=== PATIENT | male | born 1985 | race Caucasian/White ===

== ENCOUNTER 2018-05-13 19:59 | Emergency (ER) | payer OTHER ==
[~2018-05-13 19:59] MED LIST: Bactrim Ds Tab1 EACH PO; CEPH500 PO; IBUP600 PO; Naprosyn500 MG PO; Norco 5-325 Ta1 EACH PO; OMEPRAZOLE MAGN20 MG PO; PENVK500 PO; Percocet 5-3251 EACH PO; SULTRIDS PO
[2018-05-14] MEDS ORDERED: Augmentin 875-1 EACH PO (13:03)
== END 2018-05-13 21:00 | disposition left against medical advice (07) ==
LOC: ER 19:59
DX: Z53.21 Procedure and treatment not carried out due to patient leaving prior to being seen by health care provider (principal)

== ENCOUNTER 2018-05-14 09:58 | Emergency (ER) | payer OTHER ==
[~2018-05-14] VITALS: Ht 188 cm; Wt 77.1 kg
[2018-05-14 10:40] LABS: Source, Urine Clean Catch
[2018-05-14 10:44] LABS: Bilirubin, Urine Neg (Neg); Blood, Urine 5+ (Neg); Glucose Qualitative, Urine 2+ (Neg); Ketones, Urine 2+ (Neg); Leukocyte Esterase, Urine 1+ (Neg); Nitrite, Urine Neg (Neg); Protein, Urine 3+ (Neg); Urobilinogen, Urine 2+ (Normal)
[2018-05-14 10:52] LABS: Appearance, Urine Hazy (Clear); Color, Urine Yellow (P-Yellow)
[2018-05-14 10:56] LABS: Red Blood Cells, Urine TNTC /hpf (0-2); White Blood Cells, Urine 0-2 /hpf (0-5)
[2018-05-14 10:57] LABS: Bacteria Few /hpf; Mucus Mod (0-Heavy); Squamous Epithelial Cells Not Seen /hpf (Few)
[2018-05-14 10:58] LABS: Yeast/Fungi Urine Rare /hpf
[2018-05-14 11:02] LABS: Influenza A Negative (NEGATIVE); Influenza B Negative (NEGATIVE)
[2018-05-14 11:23] LABS: BASOPHILS ABSOLUTE AUTO 0.03 K/mm3 (0.00-0.23); BASOPHILS PERCENT AUTO 0 % (0-2); EOSINOPHILS ABSOLUTE AUTO 0.01 K/mm3 (0.00-0.68); EOSINOPHILS PERCENT AUTO 0 % (0-6); Hematocrit 39.2 % (37.0-53.0); Hemoglobin 12.8 g/dL (13.5-17.5); IMMATURE GRAN ABSOLUTE AUTO 0.09 K/mm3 (0.00-0.10); IMMATURE GRAN PERCENT AUTO 1 % (0-1); LYMPHOCYTES ABSOLUTE AUTO 1.99 K/mm3 (0.84-5.20); LYMPHOCYTES PERCENT AUTO 11 % (21-46); MONOCYTES ABSOLUTE AUTO 1.68 K/mm3 (0.16-1.47); MONOCYTES PERCENT AUTO 9 % (4-13); Mean Corpuscular HGB 28.2 pg (26.0-34.0); Mean Corpuscular HGB Conc 32.7 g/dL (31.5-36.5); Mean Corpuscular Volume 86 fL (80-100); Mean Platelet Volume 8.7 fL (9.1-12.4); NEUTROPHILS ABSOLUTE AUTO 14.78 K/mm3 (1.96-9.15); NEUTROPHILS PERCENT AUTO 80 % (41-73); Platelet Count 228 K/mm3 (150-400); RDW Coefficient Variation 12.9 % (11.7-14.2); RDW Standard Deviation 40.5 fL (35.1-46.3); Red Blood Cell Count 4.54 M/mm3 (4.30-5.90); White Blood Cell Count 18.58 K/mm3 (4.00-11.30)
[2018-05-14 11:45] LABS: Alanine Aminotransfer (ALT/SGP 61 U/L (12-78); Albumin, Blood 3.3 g/dL (3.4-5.0); Albumin/Globulin Ratio 0.8 (0.8-1.8); Alk Phos 99 U/L (50-136); Anion Gap 7 mmol/L (6-16); Aspartate Aminotrans (AST/SGOT 24 U/L (12-37); Bilirubin, Total 0.7 mg/dL (0.1-1.0); Blood Urea Nitrogen 11 mg/dL (8-24); Bun/Creatinine Ratio 15.6 (12.0-20.0); CO2, Blood 29 mmol/L (21-32); Calcium, Blood 8.8 mg/dL (8.5-10.1); Chloride, Blood 103 mmol/L (98-108); Globulin, Blood 4.2 g/dL (2.2-4.0); Glomerular Filtration Rate >60 (60-); Glucose, Blood 124 mg/dL (70-99); Potassium, Blood 3.7 mmol/L (3.5-5.5); Sodium, Blood 139 mmol/L (136-145); Total Protein, Blood 7.5 g/dL (6.4-8.2)
[2018-05-14] MEDS ORDERED: Augmentin 875-1 EACH PO (13:03)
== END 2018-05-14 14:11 | disposition home or self-care (01) ==
LOC: ER 09:58
PROVIDERS: Emergency Medicine; Physician Assistant
DX: J18.1 Lobar pneumonia, unspecified organism (principal); Z88.6 Allergy status to analgesic agent; F17.210 Nicotine dependence, cigarettes, uncomplicated
CPT/HCPCS: 36415; 71046; 80053; 81001; 83605; 85025; 87086; 87804; 96365; 96367; 96375; 99283-25; J0456; J0696; J1885; J7030; J7050

== ENCOUNTER 2018-09-29 21:03 | Inpatient (IN) | payer OTHER ==
[~2018-09-29] VITALS: Ht 188 cm; Wt 84.0 kg
[~2018-09-29 21:03] MED LIST changes: +Augmentin 875-1 EACH PO
[2018-09-29 22:12] LABS: BASOPHILS ABSOLUTE AUTO 0.04 K/mm3 (0.00-0.23); BASOPHILS PERCENT AUTO 0 % (0-2); EOSINOPHILS ABSOLUTE AUTO 0.05 K/mm3 (0.00-0.68); EOSINOPHILS PERCENT AUTO 0 % (0-6); Hemoglobin 13.1 g/dL (13.5-17.5); IMMATURE GRAN ABSOLUTE AUTO 0.11 K/mm3 (0.00-0.10); IMMATURE GRAN PERCENT AUTO 1 % (0-1); LYMPHOCYTES ABSOLUTE AUTO 3.28 K/mm3 (0.84-5.20); LYMPHOCYTES PERCENT AUTO 17 % (21-46); MONOCYTES ABSOLUTE AUTO 1.69 K/mm3 (0.16-1.47); MONOCYTES PERCENT AUTO 9 % (4-13); Mean Corpuscular HGB 29.4 pg (26.0-34.0); Mean Corpuscular HGB Conc 33.6 g/dL (31.5-36.5); Mean Corpuscular Volume 87 fL (80-100); Mean Platelet Volume 8.8 fL (9.1-12.4); NEUTROPHILS ABSOLUTE AUTO 14.51 K/mm3 (1.96-9.15); NEUTROPHILS PERCENT AUTO 74 % (41-73); Platelet Count 280 K/mm3 (150-400); RDW Coefficient Variation 12.1 % (11.7-14.2); RDW Standard Deviation 39.2 fL (35.1-46.3); Red Blood Cell Count 4.46 M/mm3 (4.30-5.90); White Blood Cell Count 19.68 K/mm3 (4.00-11.30)
[2018-09-29 22:30] LABS: Alanine Aminotransfer (ALT/SGP 20 U/L (12-78); Albumin, Blood 3.5 g/dL (3.4-5.0); Albumin/Globulin Ratio 0.7 (0.8-1.8); Alk Phos 133 U/L (50-136); Anion Gap 5 mmol/L (6-16); Aspartate Aminotrans (AST/SGOT 12 U/L (12-37); Bilirubin, Total 0.5 mg/dL (0.1-1.0); Blood Urea Nitrogen 10 mg/dL (8-24); Bun/Creatinine Ratio 11.9 (12.0-20.0); CO2, Blood 30 mmol/L (21-32); Calcium, Blood 8.7 mg/dL (8.5-10.1); Chloride, Blood 99 mmol/L (98-108); Creatinine, Blood 0.84 mg/dL (0.60-1.20); Globulin, Blood 4.7 g/dL (2.2-4.0); Glomerular Filtration Rate >60 (60-); Glucose, Blood 95 mg/dL (70-99); Potassium, Blood 3.6 mmol/L (3.5-5.5); Sodium, Blood 134 mmol/L (136-145); Total Protein, Blood 8.2 g/dL (6.4-8.2)
[2018-09-29 22:48] LABS: Source, Urine Clean Catch
[2018-09-29 22:50] LABS: Appearance, Urine Clear (Clear); Blood, Urine 5+ (Neg); Color, Urine Amber (P-Yellow); Glucose Qualitative, Urine Neg (Neg); Ketones, Urine 1+ (Neg); Leukocyte Esterase, Urine 1+ (Neg); Nitrite, Urine Neg (Neg); Protein, Urine 4+ (Neg); Urobilinogen, Urine 2+ (Normal)
[2018-09-29 22:51] LABS: Bilirubin, Urine 1+ (Neg)
[2018-09-29 22:56] LABS: Bacteria Many /hpf; Red Blood Cells, Urine 50-100 /hpf (0-2); Squamous Epithelial Cells Not Seen /hpf (Few); Yeast/Fungi Urine Few /hpf
[2018-09-29 22:57] LABS: Hyaline Casts 0-2 /lpf (0-2); Mucus Light (0-Heavy)
--- NOTE | 2018-09-30 06:22 | NUR ---
RECEIVED HAND OFF FROM ER NURSE USING SBAR. TRANSPORTED TO ROOM VIA WHEELCHAIR. TRANSFERED SELF INTO BED WITH STANDBY ASSIST. AAO X3, JEONG, FOLLOWS ALL COMMANDS. ORIENTED TO ROOM, CALL SYSTEM, AND POC, VOICES UNDERSTANDING. RESPIRATIONS EVEN AND UNLABORED ON ROOM AIR. LUNG SOUNDS COARSE BILATERALLY. C/O CHEST AND FLANK PAIN 5/10 AT THIS TIME, WILL MEDICATE PER EMAR. ABDOMEN SOFT AND NONDISTENDED. BOWEL SOUNDS PRESENT IN ALL QUADS. CONTINENT OF BOWEL AND BLADDER, USES URINAL AT BEDSIDE. STATES LAST BM WAS 09/29/18 AND WAS NORMAL FOR HIM. 18G SL PIV NOT LEFT AC IS PATENT, FLUSHING WITH EASE. GOOD DISTAL PULSES NOTED TO ALL EXTREMITIES. SCATTERED ABRASIONS NOTED TO RIGHT HAND IN THE NUCKLE AREA, STATES THART HE LOST HIS TEMPER AND HIT A WALL. DENIES AGRESSION TOWARDS ANOTHER PERSON. ADMISSION ASSESSMENT IN PROGRESS. WILL CONTINUE TO MONITOR.
[2018-09-30 10:01] LABS: BASOPHILS ABSOLUTE AUTO 0.05 K/mm3 (0.00-0.23); BASOPHILS PERCENT AUTO 0 % (0-2); EOSINOPHILS ABSOLUTE AUTO 0.05 K/mm3 (0.00-0.68); EOSINOPHILS PERCENT AUTO 0 % (0-6); Hematocrit 33.7 % (37.0-53.0); Hemoglobin 11.2 g/dL (13.5-17.5); IMMATURE GRAN ABSOLUTE AUTO 0.16 K/mm3 (0.00-0.10); IMMATURE GRAN PERCENT AUTO 1 % (0-1); LYMPHOCYTES ABSOLUTE AUTO 2.61 K/mm3 (0.84-5.20); LYMPHOCYTES PERCENT AUTO 15 % (21-46); MONOCYTES ABSOLUTE AUTO 1.39 K/mm3 (0.16-1.47); MONOCYTES PERCENT AUTO 8 % (4-13); Mean Corpuscular HGB 29.4 pg (26.0-34.0); Mean Corpuscular HGB Conc 33.2 g/dL (31.5-36.5); Mean Corpuscular Volume 89 fL (80-100); Mean Platelet Volume 8.9 fL (9.1-12.4); NEUTROPHILS ABSOLUTE AUTO 12.96 K/mm3 (1.96-9.15); NEUTROPHILS PERCENT AUTO 75 % (41-73); Platelet Count 234 K/mm3 (150-400); RDW Coefficient Variation 12.3 % (11.7-14.2); RDW Standard Deviation 39.8 fL (35.1-46.3); Red Blood Cell Count 3.81 M/mm3 (4.30-5.90); White Blood Cell Count 17.22 K/mm3 (4.00-11.30)
[2018-09-30 16:04] LABS: U Amphetamine Screen DETECTED; U Barbituate Screen Not Detected; U Benzodiazapine Screen Not Detected; U Buprenorphine Screen Not Detected; U Cannabinoids Screen DETECTED; U Cocaine Screen Not Detected; U Methadone Screen Not Detected; U Methamphetamine Screen DETECTED; U Opiates Screen DETECTED; U Oxycodone Screen Not Detected; U Phencyclidine Screen Not Detected; U Propoxyphene Screen Not Detected
--- NOTE | 2018-09-30 17:58 | NUR ---
SUMMARY PT SLEPT MOST OF THE DAY, DENIES ANY SOB, SPUTUM SAMPLE COLLECTED AND SENT TO LAB, DENIED ANY DISCOMFORT TODAY, NO ACUTE CHANGES THIS SHIFT.
--- NOTE | 2018-09-30 22:45 | NUR ---
TEMP RECHECK SHOWS IMPROVEMENT OF TEMPROAL TEMP FROM 101.1 TO 100.0. STATES THAT HE FEELS BETTER THAN HE DID EARLIER. [facility]
--- NOTE | 2018-10-01 | NUR ---
TEMP RECHECK SHOWS NORMAL TEMPORAL TEMP OF 98.4
[2018-10-01 04:45] LABS: BASOPHILS ABSOLUTE AUTO 0.04 K/mm3 (0.00-0.23); BASOPHILS PERCENT AUTO 0 % (0-2); EOSINOPHILS ABSOLUTE AUTO 0.16 K/mm3 (0.00-0.68); EOSINOPHILS PERCENT AUTO 1 % (0-6); Hematocrit 32.4 % (37.0-53.0); Hemoglobin 10.6 g/dL (13.5-17.5); IMMATURE GRAN ABSOLUTE AUTO 0.09 K/mm3 (0.00-0.10); IMMATURE GRAN PERCENT AUTO 1 % (0-1); LYMPHOCYTES ABSOLUTE AUTO 3.31 K/mm3 (0.84-5.20); LYMPHOCYTES PERCENT AUTO 21 % (21-46); MONOCYTES ABSOLUTE AUTO 1.74 K/mm3 (0.16-1.47); MONOCYTES PERCENT AUTO 11 % (4-13); Mean Corpuscular HGB 28.3 pg (26.0-34.0); Mean Corpuscular HGB Conc 32.7 g/dL (31.5-36.5); Mean Corpuscular Volume 87 fL (80-100); Mean Platelet Volume 9.1 fL (9.1-12.4); NEUTROPHILS ABSOLUTE AUTO 10.79 K/mm3 (1.96-9.15); NEUTROPHILS PERCENT AUTO 67 % (41-73); Platelet Count 250 K/mm3 (150-400); RDW Coefficient Variation 12.6 % (11.7-14.2); RDW Standard Deviation 39.9 fL (35.1-46.3); Red Blood Cell Count 3.74 M/mm3 (4.30-5.90); White Blood Cell Count 16.13 K/mm3 (4.00-11.30)
[2018-10-01 05:17] LABS: Alanine Aminotransfer (ALT/SGP 17 U/L (12-78); Albumin, Blood 2.5 g/dL (3.4-5.0); Albumin/Globulin Ratio 0.6 (0.8-1.8); Alk Phos 106 U/L (50-136); Anion Gap 6 mmol/L (6-16); Aspartate Aminotrans (AST/SGOT 28 U/L (12-37); Bilirubin, Total 0.3 mg/dL (0.1-1.0); Blood Urea Nitrogen 11 mg/dL (8-24); Bun/Creatinine Ratio 13.9 (12.0-20.0); CO2, Blood 27 mmol/L (21-32); Calcium, Blood 8.2 mg/dL (8.5-10.1); Chloride, Blood 105 mmol/L (98-108); Creatinine, Blood 0.79 mg/dL (0.60-1.20); Globulin, Blood 4.3 g/dL (2.2-4.0); Glomerular Filtration Rate >60 (60-); Glucose, Blood 103 mg/dL (70-99); Sodium, Blood 138 mmol/L (136-145); Total Protein, Blood 6.8 g/dL (6.4-8.2)
--- NOTE | 2018-10-01 06:30 | NUR ---
SHIFT SUMMARY PT SLEPT MOST OF THE SHIFT, DENIES ANY SOB OR COUGH AT THIS TIME. ABX INFUSING VIS PIV. DENIES FURTHER NEEDS OR WANTS. SAFETY MEASURES IN PLACE. WILL CONTINUE TO MONITOR.
--- NOTE | 2018-10-01 14:46 | NUR ---
PT RECENTLY REQ TO GO HOME. SEE VS. NOTIFIED, REPORTS WILL PLACE D/C ORDERS.
[2018-10-01] MEDS ORDERED: ACET325 PO (15:04)
[2018-10-01] MEDS ORDERED: CEFD300 PO (15:04)
[2018-10-01] MEDS ORDERED: Zithromax500 MG PO (15:04)
--- NOTE | 2018-10-01 15:13 | NUR ---
DISCHARGE PATIENT DISCHARGED, UNDERSTANDING INSTRUCTIONS. NO ACUTE DISTRESS NOTED, NEW RX FAXED TO [facility] AT HIS REQUEST
== END 2018-10-01 15:13 | disposition home or self-care (01) | DRG 871 ==
LOC: ER 21:03 → SURS 09-30 06:01
PROVIDERS: Emergency Medicine; Internal Medicine; ADMIT Internal Medicine
DX: A41.9 Sepsis, unspecified organism (principal); J18.9 Pneumonia, unspecified organism; F17.200 Nicotine dependence, unspecified, uncomplicated; Z88.6 Allergy status to analgesic agent
CPT/HCPCS: 36415; 71046; 71260; 80048; 80053; 81001; 83605; 84145; 85025; 85379; 87040; 87070; 87086; 87205; 93005; 93010; 96361; 96365; 96367; 96372-59; 99285-25; A9270; J0456; J0696; J1650; J7030; J7050; Q9967

== ENCOUNTER 2019-04-26 19:15 | Emergency (ER) | payer OTHER ==
[~2019-04-26] VITALS: Ht 188 cm; Wt 81.7 kg
[~2019-04-26 19:15] MED LIST changes: +ACET325 PO; +CEFD300 PO; +Zithromax500 MG PO
[2019-04-26 19:55] LABS: BASOPHILS ABSOLUTE AUTO 0.02 K/mm3 (0.00-0.23); BASOPHILS PERCENT AUTO 0 % (0-2); EOSINOPHILS PERCENT AUTO 0 % (0-6); Hematocrit 43.2 % (37.0-53.0); Hemoglobin 14.2 g/dL (13.5-17.5); IMMATURE GRAN ABSOLUTE AUTO 0.17 K/mm3 (0.00-0.10); IMMATURE GRAN PERCENT AUTO 1 % (0-1); LYMPHOCYTES ABSOLUTE AUTO 2.87 K/mm3 (0.84-5.20); LYMPHOCYTES PERCENT AUTO 18 % (21-46); MONOCYTES ABSOLUTE AUTO 0.81 K/mm3 (0.16-1.47); MONOCYTES PERCENT AUTO 5 % (4-13); Mean Corpuscular HGB 28.6 pg (26.0-34.0); Mean Corpuscular HGB Conc 32.9 g/dL (31.5-36.5); Mean Corpuscular Volume 87 fL (80-100); Mean Platelet Volume 9.6 fL (9.1-12.4); NEUTROPHILS ABSOLUTE AUTO 11.69 K/mm3 (1.96-9.15); NEUTROPHILS PERCENT AUTO 75 % (41-73); Platelet Count 177 K/mm3 (150-400); RDW Coefficient Variation 12.9 % (11.7-14.2); RDW Standard Deviation 40.7 fL (35.1-46.3); Red Blood Cell Count 4.97 M/mm3 (4.30-5.90); White Blood Cell Count 15.56 K/mm3 (4.00-11.30)
[2019-04-26 20:02] LABS: Influenza A Negative (NEGATIVE); Influenza B Negative (NEGATIVE)
[2019-04-26 20:13] LABS: Alanine Aminotransfer (ALT/SGP 20 U/L (12-78); Albumin, Blood 3.4 g/dL (3.4-5.0); Albumin/Globulin Ratio 0.7 (0.8-1.8); Alk Phos 81 U/L (50-136); Anion Gap 2 mmol/L (6-16); Aspartate Aminotrans (AST/SGOT 27 U/L (12-37); Bilirubin, Total 0.6 mg/dL (0.1-1.0); Blood Urea Nitrogen 11 mg/dL (8-24); Bun/Creatinine Ratio 12.7 (12.0-20.0); CO2, Blood 32 mmol/L (21-32); Calcium, Blood 9.1 mg/dL (8.5-10.1); Chloride, Blood 97 mmol/L (98-108); Creatinine, Blood 0.87 mg/dL (0.60-1.20); Globulin, Blood 4.9 g/dL (2.2-4.0); Glomerular Filtration Rate >60 (60-); Glucose, Blood 115 mg/dL (70-99); Potassium, Blood 3.8 mmol/L (3.5-5.5); Sodium, Blood 131 mmol/L (136-145); Total Protein, Blood 8.3 g/dL (6.4-8.2)
== END 2019-04-26 23:16 | disposition left against medical advice (07) ==
LOC: ER 19:15
PROVIDERS: Emergency Medicine
DX: Z53.21 Procedure and treatment not carried out due to patient leaving prior to being seen by health care provider (principal)
CPT/HCPCS: 36415; 71046; 80053; 85025; 87804

== ENCOUNTER 2020-06-17 14:14 | Emergency (ER) | payer OTHER ==
[~2020-06-17] VITALS: Ht 188 cm; Wt 86.2 kg
[~2020-06-17 14:14] MED LIST changes: +VENL25 PO
[2020-06-17] MEDS ORDERED: Bactrim Ds Tab1 EACH PO (15:02)
== END 2020-06-17 16:31 | disposition home or self-care (01) ==
LOC: ER 14:14
DX: L02.31 Cutaneous abscess of buttock (principal); R59.0 Localized enlarged lymph nodes
CPT/HCPCS: 10060; 76857; 90471; 90714; 99283-25; A9270-GY

== ENCOUNTER 2020-09-29 19:24 | Emergency (ER) | payer OTHER ==
[~2020-09-29] VITALS: Ht 188 cm; Wt 81.7 kg
[2020-09-29] MEDS ORDERED: Vibramycin100 MG PO (21:37)
== END 2020-09-29 21:47 | disposition home or self-care (01) ==
LOC: ER 19:24
DX: L02.415 Cutaneous abscess of right lower limb (principal); L02.411 Cutaneous abscess of right axilla; L02.212 Cutaneous abscess of back [any part, except buttock and flank]; A54.9 Gonococcal infection, unspecified; A74.9 Chlamydial infection, unspecified
CPT/HCPCS: 10061; 96372-59; 99283-25; A9270; J0696

== ENCOUNTER 2020-11-15 16:04 | Emergency (ER) | payer OTHER ==
[~2020-11-15] VITALS: Ht 188 cm; Wt 81.7 kg
[~2020-11-15 16:04] MED LIST changes: +Vibramycin100 MG PO
== END 2020-11-15 16:50 | disposition home or self-care (01) ==
LOC: ER 16:04
DX: L73.9 Follicular disorder, unspecified (principal); F17.210 Nicotine dependence, cigarettes, uncomplicated
CPT/HCPCS: 99283

== ENCOUNTER 2021-04-29 21:36 | Emergency (ER) | payer OTHER ==
[~2021-04-29] VITALS: Ht 188 cm; Wt 81.7 kg
== END 2021-04-29 23:30 | disposition home or self-care (01) ==
LOC: ER 21:36
DX: L03.012 Cellulitis of left finger (principal); F17.210 Nicotine dependence, cigarettes, uncomplicated
CPT/HCPCS: 10060; 99282-25

== ENCOUNTER 2022-05-12 23:09 | Emergency (ER) | payer OTHER ==
[~2022-05-12] VITALS: Ht 188 cm; Wt 86.2 kg
[~2022-05-12 23:09] MED LIST changes: +Keflex500 MG PO
[2022-05-12] MEDS ORDERED: CEPH500 PO (23:31)
== END 2022-05-12 23:38 | disposition home or self-care (01) ==
LOC: ER 23:09
DX: L02.01 Cutaneous abscess of face (principal); F17.210 Nicotine dependence, cigarettes, uncomplicated
CPT/HCPCS: A9270

== ENCOUNTER 2022-10-01 04:39 | Inpatient (IN) | payer OTHER ==
[~2022-10-01] VITALS: Ht 188 cm; Wt 88.5 kg
[~2022-10-01 04:39] MED LIST changes: +OMEP20ER PO
[2022-10-01 05:27] LABS: BASOPHILS ABSOLUTE AUTO 0.05 K/mm3 (0.00-0.23); BASOPHILS PERCENT AUTO 0 % (0-2); EOSINOPHILS ABSOLUTE AUTO 0.38 K/mm3 (0.00-0.68); EOSINOPHILS PERCENT AUTO 3 % (0-6); Hematocrit 34.2 % (37.0-53.0); Hemoglobin 11.2 g/dL (13.5-17.5); IMMATURE GRAN ABSOLUTE AUTO 0.02 K/mm3 (0.00-0.10); IMMATURE GRAN PERCENT AUTO 0 % (0-1); LYMPHOCYTES ABSOLUTE AUTO 2.17 K/mm3 (0.84-5.20); LYMPHOCYTES PERCENT AUTO 19 % (21-46); MONOCYTES ABSOLUTE AUTO 0.69 K/mm3 (0.16-1.47); MONOCYTES PERCENT AUTO 6 % (4-13); Mean Corpuscular HGB Conc 32.7 g/dL (31.5-36.5); Mean Corpuscular Volume 86 fL (80-100); Mean Platelet Volume 8.7 fL (9.1-12.4); NEUTROPHILS ABSOLUTE AUTO 8.07 K/mm3 (1.96-9.15); NEUTROPHILS PERCENT AUTO 71 % (41-73); Platelet Count 328 K/mm3 (150-400); RDW Coefficient Variation 12.6 % (11.7-14.2); RDW Standard Deviation 39.4 fL (35.1-46.3); White Blood Cell Count 11.38 K/mm3 (4.00-11.30)
[2022-10-01 05:49] LABS: Albumin, Blood 3.4 g/dL (3.4-5.0); Albumin/Globulin Ratio 0.8 (0.8-1.8); Bilirubin, Total 0.3 mg/dL (0.1-1.0); Bun/Creatinine Ratio 14.1 (12.0-20.0); Creatinine, Blood 0.85 mg/dL (0.60-1.20); Globulin, Blood 4.4 g/dL (2.2-4.0); Potassium, Blood 3.6 mmol/L (3.5-5.5); Total Protein, Blood 7.8 g/dL (6.4-8.2)
[2022-10-01] MEDS ORDERED: OMEP20ER PO (06:07)
[2022-10-01 06:15] LABS: Source, Urine Clean Catch
[2022-10-01 06:21] LABS: Appearance, Urine Clear (Clear); Bilirubin, Urine Neg (Neg); Blood, Urine 5+ (Neg); Color, Urine Amber (P-Yellow); Glucose Qualitative, Urine Neg (Neg); Ketones, Urine 1+ (Neg); Leukocyte Esterase, Urine Neg (Neg); Nitrite, Urine Neg (Neg); Protein, Urine 2+ (Neg); Specific Gravity, Urine 1.025 (1.003-1.022); Urobilinogen, Urine 2+ (Normal)
[2022-10-01 06:34] VITALS: BP 131/71
[2022-10-01 06:36] LABS: Bacteria Rare /hpf; Mucus Mod (0-Heavy); Red Blood Cells, Urine 25-50 /hpf (0-2); Squamous Epithelial Cells Rare /hpf (Few); White Blood Cells, Urine 0-2 /hpf (0-5)
[2022-10-01 07:38] VITALS: BP 117/76
--- NOTE | 2022-10-01 18:13 | NUR ---
SEEN WHAT LOOKED TO RESEMBLE A GREEN METAL OBJECT IN PATIENTS BED THAT WAS FALLING OUT OF HIS POCKET INTO THE BED, MIGHT HAVE BEEN A VAPE. NOTIFIED RN SO HE COULD FOLLOW UP WITH THE PATIENT. RN EDUCATED PATIENT. ALSO WINTESSED PATIENT PUCHING BUTTONS ON IV PUMP.STATED IT WAS BEEPING, BUT IT WAS NOT BEEPING WHEN I ENTERED THE ROOM
--- NOTE | 2022-10-01 18:41 | NUR ---
PT IS A/OX4, PLEASANT AND COOPERATIVE. THE PT HAS BEEN BEDREST TODAY KEEPING HIS LLE ELEVATED. THE PT SO FAR HAS DENIED ANY PAIN. N/V OR SOB. THE PT HAS BEEN DROWSY T/O THE DAY AWAKENS EASILY. SO WAS AT THE BEDSIDE FOR MOST OF THE DAY, CALL LIGHT IN REACH, WILL CONTINUE TO MONITOR AND ASSESS FOR CHANGES
[2022-10-01 19:23] VITALS: BP 115/70
[2022-10-02 04:37] VITALS: BP 114/87
[2022-10-02 05:26] LABS: BASOPHILS ABSOLUTE AUTO 0.04 K/mm3 (0.00-0.23); BASOPHILS PERCENT AUTO 1 % (0-2); EOSINOPHILS ABSOLUTE AUTO 0.52 K/mm3 (0.00-0.68); EOSINOPHILS PERCENT AUTO 7 % (0-6); Hematocrit 34.6 % (37.0-53.0); Hemoglobin 11.2 g/dL (13.5-17.5); IMMATURE GRAN ABSOLUTE AUTO 0.01 K/mm3 (0.00-0.10); IMMATURE GRAN PERCENT AUTO 0 % (0-1); LYMPHOCYTES ABSOLUTE AUTO 2.51 K/mm3 (0.84-5.20); LYMPHOCYTES PERCENT AUTO 35 % (21-46); MONOCYTES ABSOLUTE AUTO 0.43 K/mm3 (0.16-1.47); MONOCYTES PERCENT AUTO 6 % (4-13); Mean Corpuscular HGB 28.4 pg (26.0-34.0); Mean Corpuscular HGB Conc 32.4 g/dL (31.5-36.5); Mean Corpuscular Volume 88 fL (80-100); Mean Platelet Volume 8.6 fL (9.1-12.4); NEUTROPHILS ABSOLUTE AUTO 3.68 K/mm3 (1.96-9.15); NEUTROPHILS PERCENT AUTO 51 % (41-73); Platelet Count 295 K/mm3 (150-400); RDW Coefficient Variation 12.8 % (11.7-14.2); RDW Standard Deviation 41.1 fL (35.1-46.3); Red Blood Cell Count 3.94 M/mm3 (4.30-5.90); White Blood Cell Count 7.19 K/mm3 (4.00-11.30)
--- NOTE | 2022-10-02 05:37 | NUR ---
SHIFT SUMMARY NO ACUTE CHANGES TO PT STATUS. PT HAS BEEN HAVING SOME PAIN IN HIS L LEG. PT MEDICATED PER EMAR. PT GIRLFRIEND HERE WITH THE PT, BOTH ARE PLEASANT AND COOPERATIVE. CALL LIGHT IS WITHIN PT REACH.
[2022-10-02 06:07] LABS: Anion Gap 2 mmol/L (6-16); Blood Urea Nitrogen 9 mg/dL (8-24); Bun/Creatinine Ratio 13.5 (12.0-20.0); CO2, Blood 30 mmol/L (21-32); Calcium, Blood 8.9 mg/dL (8.5-10.1); Chloride, Blood 108 mmol/L (98-108); Creatinine, Blood 0.67 mg/dL (0.60-1.20); Glomerular Filtration Rate 125 (60-); Glucose, Blood 95 mg/dL (70-99); Phosphorus, Blood 3.9 mg/dL (2.5-4.9); Potassium, Blood 4.8 mmol/L (3.5-5.5); Sodium, Blood 140 mmol/L (136-145)
[2022-10-02 07:29] VITALS: BP 126/78
--- NOTE | 2022-10-02 11:27 | NUR ---
CULTURE RESULTS CALLED DR. DIAZ WITH POSITIVE WOUND CULTURE RESULTS FOR MRSA. NO ORDERS, REPLIED WITH I KNOW THAT.
[2022-10-02 15:42] VITALS: BP 118/69
--- NOTE | 2022-10-02 15:43 | NUR ---
SHIFT SUMMARY TOLERATING ABX THIS SHIFT. CHANGED DRESSINGS TO RIGHT LOWER LEG AND MID UPPER BACK. CX RESULTS CALLED TO DOC. RN INITIATED CONTACT ISOLATION. VSS AND WNL. C/O PAIN 5/10 MOST OF SHIFT, DENIES NEED FOR MEDICATIONS AT THIS TIME. WILL CONTINUE TO MONITOR
[2022-10-02 19:37] VITALS: BP 104/60
--- NOTE | 2022-10-03 04:23 | NUR ---
SHIFT SUMMARY; NO ACUTE CHANGES OVERNIGHT. THE PT IS AXO X4 AND INDEPENDENT IN THE ROOM. THE PT HAS BEEN SLEEPING IN BED FOR THE MAJORITY OF THE NIGHT. THE DRESSING TO THE PTS L [place] AND UPPER MID BACK REMAIN INTACT. THE PT HAS NOT ENDORSED THE NEED FOR ANY PRN PAIN MEDICATIONS THIS SHIFT. THE PTS GIRLFRIEND IS AT BEDSIDE. THE PT DENIES ANY SOB, CHEST PAIN/PRESSURE OR N/V. CURRENTLY THE PT IS SLEEPING IN BED WITH THE BED IN THE LOWEST POSITION AND THE CALL LIGHT AT BEDSIDE. FIRE SAFETY MAINTAINED T/O THE SHIFT.
[2022-10-03 05:01] VITALS: BP 111/74
[2022-10-03 06:05] LABS: Bun/Creatinine Ratio 19.8 (12.0-20.0); Calcium, Blood 8.3 mg/dL (8.5-10.1); Creatinine, Blood 0.71 mg/dL (0.60-1.20); Potassium, Blood 4.3 mmol/L (3.5-5.5)
[2022-10-03 07:34] VITALS: BP 117/66
[2022-10-03 18:17] VITALS: BP 125/76
--- NOTE | 2022-10-03 20:32 | NUR ---
SHIFT SUMMARY: ROBERTO IS A&OX4. VSS, NO ACUTE EVENTS THIS SHIFT. HE IS INDEPENDENT IN THE ROOM, TOLERATING PO INTAKE WELL. IV TO R FOREARM PATENT. PT RESTED QUIETLY IN BETWEEN VISITS TO THE BATHROOM. PT REPORTED NEEDING TO URINATE ABOUT EVERY HOUR. LEFT LEG EDEMA IMPROVING, REDNESS IMPROVING PER PREVIOUS OUTLINE, DRESSING INTACT. HE USES THE CALL LIGHT APPROPRIATELY. HE IS LYING IN BED WITH THE CALL LIGHT IN REACH. REPORT WAS GIVEN TO PROGRAM SPECIALIST RN.
[2022-10-04 04:14] VITALS: BP 120/74
--- NOTE | 2022-10-04 05:01 | NUR ---
SHIFT SUMMARY; NO ACUTE CHANGES OVERNIGHT. THE PT IS AXO X4 AND INDEPENDENT IN THE ROOM. THE PT HAS BEEN SLEEPING FOR THE ENTIRETY OF THE NIGHT. THE PTS GIRLFRIEND AND FAMILY MEMBER ARE AT BEDSIDE. THE PT HAS DENIED THE NEED FOR ANY PAIN MEDICATION THIS EVENING. THE PT HAS ALSO DENIED ANY SOB, CHEST PAIN/PRESSURE OR N/V. CURRENTLY THE PT IS SLEEPING IN BED WITH THE BED IN THE LOWEST POSITION AND THE CALL LIGHT AT BEDSIDE. FIRE SAFETY MAINTAINED T/O THE NIGHT.
[2022-10-04 06:50] LABS: Bun/Creatinine Ratio 18.8 (12.0-20.0); Calcium, Blood 8.5 mg/dL (8.5-10.1); Creatinine, Blood 0.64 mg/dL (0.60-1.20)
[2022-10-04 07:49] VITALS: BP 117/66
[2022-10-04 15:17] VITALS: BP 122/69
--- NOTE | 2022-10-04 16:10 | NUR ---
SHIFT SUMMARY NO ACUTE EVENTS OVER THIS SHIFT, PATIENT CONTINUES TO RECEIVE ABX WITH NO COMPLICATIONS. WOUND DRESSINGS CHANGED WITH NON ADHERENT PADS AND TAPE. APAP GIVEN FOR MILD PAIN WITH GOOD RELIEF.
[2022-10-04 21:39] VITALS: BP 101/71
--- NOTE | 2022-10-05 06:22 | NUR ---
SHIFT SUMMARY PT IS A&O4, INDEPENDENT IN ROOM, RA, VSS, NO COMPLAINTS OF PAIN OR DISCOMFORT THIS SHIFT, DC PLANNING FOR TODAY, CONTINUE POC
[2022-10-05 07:24] VITALS: BP 118/75
[2022-10-05] MEDS ORDERED: SULTRIDS PO (14:18)
[2022-10-05] MEDS ORDERED: VISBIOME 112.51 EACH PO (14:19)
--- NOTE | 2022-10-05 14:44 | NUR ---
PT DISCHARGED WITH DC INSTRUCTIONS AND WOUND CARE INSTRUCTIONS. RX TO [facility]. STAFF ESCORT TO ED ENTRANCE, GIRLFRIEND TO DRIVE PT HOME
== END 2022-10-05 14:39 | disposition home or self-care (01) | DRG 872 ==
LOC: ER 04:39 → MEDS 06:06 → ENPENDDIS 10-05 13:42 → MEDS 10-05 14:39
PROVIDERS: Internal Medicine; Student in an Organized Health Care Education/Training Program; ADMIT Internal Medicine
DX: A41.02 Sepsis due to Methicillin resistant Staphylococcus aureus (principal); L03.116 Cellulitis of left lower limb; L02.416 Cutaneous abscess of left lower limb; L97.929 Non-pressure chronic ulcer of unspecified part of left lower leg with unspecified severity; L03.115 Cellulitis of right lower limb; F15.10 Other stimulant abuse, uncomplicated; R79.89 Other specified abnormal findings of blood chemistry; I27.20 Pulmonary hypertension, unspecified; F17.210 Nicotine dependence, cigarettes, uncomplicated; Z98.890 Other specified postprocedural states; Z79.899 Other long term (current) drug therapy
CPT/HCPCS: 36415; 71045; 73701; 80048; 80053; 80069; 80202; 81001; 83605; 83880; 85025; 87040; 87070; 87075; 87077; 87147; 87186; 87205; 93005; 93010; 93306; 96361; 96365; 96375; 99284-25; A9270; J0690; J1940; J3010; J3370; J7030; J7050; Q9967

== ENCOUNTER 2022-10-05 21:41 | Emergency (ER) | payer OTHER ==
[~2022-10-05] VITALS: Ht 188 cm; Wt 88.5 kg
[~2022-10-05 21:41] MED LIST changes: +VISBIOME 112.51 EACH PO
[2022-10-05 22:09] VITALS: BP 135/86
== END 2022-10-05 23:18 | disposition home or self-care (01) ==
LOC: ER 21:41
DX: Z76.0 Encounter for issue of repeat prescription (principal); A41.02 Sepsis due to Methicillin resistant Staphylococcus aureus; F17.210 Nicotine dependence, cigarettes, uncomplicated; Z79.899 Other long term (current) drug therapy
CPT/HCPCS: 99281; A9270

== ENCOUNTER 2022-12-17 15:54 | Emergency (ER) | payer OTHER ==
[~2022-12-17] VITALS: Ht 188 cm; Wt 86.2 kg
[2022-12-17 16:15] VITALS: BP 116/81
== END 2022-12-17 17:22 | disposition left against medical advice (07) ==
LOC: ER 15:54
DX: L08.9 Local infection of the skin and subcutaneous tissue, unspecified (principal); Z53.21 Procedure and treatment not carried out due to patient leaving prior to being seen by health care provider
CPT/HCPCS: 99282

== ENCOUNTER 2022-12-20 02:44 | Emergency (ER) | payer OTHER ==
[~2022-12-20] VITALS: Ht 188 cm; Wt 86.2 kg
[2022-12-20 03:17] VITALS: BP 126/105
[2022-12-20] MEDS ORDERED: BUPRENORPHIN-N1 EAC1 SL (03:30)
[2022-12-20] MEDS ORDERED: SULTRIDS PO (05:56)
[2022-12-20] MEDS ORDERED: CEPH500 PO (05:56)
== END 2022-12-20 05:43 | disposition left against medical advice (07) ==
LOC: ER 02:44
DX: L03.031 Cellulitis of right toe (principal); F15.10 Other stimulant abuse, uncomplicated; F11.10 Opioid abuse, uncomplicated; F17.210 Nicotine dependence, cigarettes, uncomplicated; Z23 Encounter for immunization; Z53.29 Procedure and treatment not carried out because of patient's decision for other reasons
CPT/HCPCS: 90471; 90715; 99282-25; A9270

== ENCOUNTER 2023-03-17 00:55 | Inpatient (IN) | payer OTHER ==
[~2023-03-17] VITALS: Ht 182.9 cm; Wt 80.2 kg
[~2023-03-17 00:55] MED LIST changes: +BUPRENORPHIN-N1 EAC1 SL
[2023-03-17 02:04] LABS: BASOPHILS ABSOLUTE AUTO 0.04 K/mm3 (0.00-0.23); BASOPHILS PERCENT AUTO 0 % (0-2); EOSINOPHILS PERCENT AUTO 0 % (0-6); Hematocrit 35.2 % (37.0-53.0); Hemoglobin 11.6 g/dL (13.5-17.5); IMMATURE GRAN PERCENT AUTO 1 % (0-1); LYMPHOCYTES ABSOLUTE AUTO 1.74 K/mm3 (0.84-5.20); LYMPHOCYTES PERCENT AUTO 12 % (21-46); MONOCYTES ABSOLUTE AUTO 0.64 K/mm3 (0.16-1.47); MONOCYTES PERCENT AUTO 4 % (4-13); Mean Corpuscular Volume 85 fL (80-100); Mean Platelet Volume 8.4 fL (9.1-12.4); NEUTROPHILS ABSOLUTE AUTO 12.01 K/mm3 (1.96-9.15); NEUTROPHILS PERCENT AUTO 83 % (41-73); Platelet Count 417 K/mm3 (150-400); RDW Standard Deviation 40.7 fL (35.1-46.3); Red Blood Cell Count 4.14 M/mm3 (4.30-5.90); White Blood Cell Count 14.53 K/mm3 (4.00-11.30)
[2023-03-17 02:26] LABS: Albumin, Blood 3.2 g/dL (3.4-5.0); Albumin/Globulin Ratio 0.6 (0.8-1.8); Bilirubin, Total 0.3 mg/dL (0.1-1.0); Creatinine, Blood 1.06 mg/dL (0.60-1.20); Total Protein, Blood 8.2 g/dL (6.4-8.2)
[2023-03-17 05:09] VITALS: BP 114/73
[2023-03-17 07:28] VITALS: BP 110/62
[2023-03-17 15:21] VITALS: BP 103/64
[2023-03-17 19:32] VITALS: BP 104/62
[2023-03-18 03:02] VITALS: BP 87/48
[2023-03-18 03:31] VITALS: BP 91/51
[2023-03-18 04:58] LABS: BASOPHILS ABSOLUTE AUTO 0.05 K/mm3 (0.00-0.23); BASOPHILS PERCENT AUTO 1 % (0-2); EOSINOPHILS ABSOLUTE AUTO 0.22 K/mm3 (0.00-0.68); EOSINOPHILS PERCENT AUTO 3 % (0-6); Hematocrit 28.8 % (37.0-53.0); Hemoglobin 9.3 g/dL (13.5-17.5); IMMATURE GRAN ABSOLUTE AUTO 0.03 K/mm3 (0.00-0.10); IMMATURE GRAN PERCENT AUTO 0 % (0-1); LYMPHOCYTES ABSOLUTE AUTO 2.41 K/mm3 (0.84-5.20); LYMPHOCYTES PERCENT AUTO 35 % (21-46); MONOCYTES ABSOLUTE AUTO 0.73 K/mm3 (0.16-1.47); MONOCYTES PERCENT AUTO 11 % (4-13); Mean Corpuscular HGB 27.9 pg (26.0-34.0); Mean Corpuscular HGB Conc 32.3 g/dL (31.5-36.5); Mean Corpuscular Volume 87 fL (80-100); Mean Platelet Volume 8.7 fL (9.1-12.4); NEUTROPHILS ABSOLUTE AUTO 3.37 K/mm3 (1.96-9.15); NEUTROPHILS PERCENT AUTO 50 % (41-73); Platelet Count 350 K/mm3 (150-400); RDW Coefficient Variation 13.3 % (11.7-14.2); RDW Standard Deviation 42.3 fL (35.1-46.3); Red Blood Cell Count 3.33 M/mm3 (4.30-5.90); White Blood Cell Count 6.81 K/mm3 (4.00-11.30)
[2023-03-18 05:23] LABS: Albumin, Blood 2.5 g/dL (3.4-5.0); Albumin/Globulin Ratio 0.6 (0.8-1.8); Bilirubin, Total 0.3 mg/dL (0.1-1.0); Bun/Creatinine Ratio 18.5 (12.0-20.0); Calcium, Blood 8.5 mg/dL (8.5-10.1); Creatinine, Blood 0.87 mg/dL (0.60-1.20); Globulin, Blood 4.1 g/dL (2.2-4.0); Potassium, Blood 4.4 mmol/L (3.5-5.5); Total Protein, Blood 6.6 g/dL (6.4-8.2)
[2023-03-18 07:52] VITALS: BP 108/73
[2023-03-18 15:27] VITALS: BP 132/79
[2023-03-18 19:58] VITALS: BP 137/90
[2023-03-19 04:21] VITALS: BP 129/69
[2023-03-19 06:50] LABS: BASOPHILS ABSOLUTE AUTO 0.03 K/mm3 (0.00-0.23); BASOPHILS PERCENT AUTO 0 % (0-2); EOSINOPHILS PERCENT AUTO 0 % (0-6); Hematocrit 38.1 % (37.0-53.0); Hemoglobin 12.9 g/dL (13.5-17.5); IMMATURE GRAN ABSOLUTE AUTO 0.07 K/mm3 (0.00-0.10); IMMATURE GRAN PERCENT AUTO 1 % (0-1); LYMPHOCYTES ABSOLUTE AUTO 1.67 K/mm3 (0.84-5.20); LYMPHOCYTES PERCENT AUTO 14 % (21-46); MONOCYTES ABSOLUTE AUTO 0.52 K/mm3 (0.16-1.47); MONOCYTES PERCENT AUTO 4 % (4-13); Mean Corpuscular HGB 27.7 pg (26.0-34.0); Mean Corpuscular HGB Conc 33.9 g/dL (31.5-36.5); Mean Platelet Volume 8.5 fL (9.1-12.4); NEUTROPHILS ABSOLUTE AUTO 9.94 K/mm3 (1.96-9.15); NEUTROPHILS PERCENT AUTO 81 % (41-73); Platelet Count 588 K/mm3 (150-400); RDW Standard Deviation 39.1 fL (35.1-46.3); Red Blood Cell Count 4.65 M/mm3 (4.30-5.90); White Blood Cell Count 12.23 K/mm3 (4.00-11.30)
[2023-03-19 06:51] LABS: Mean Corpuscular Volume 82 fL (80-100)
[2023-03-19 07:41] VITALS: BP 123/67
[2023-03-19 16:07] VITALS: BP 122/76
[2023-03-19 20:57] VITALS: BP 121/68
[2023-03-20 03:34] VITALS: BP 109/60
[2023-03-20 06:07] LABS: BASOPHILS ABSOLUTE AUTO 0.08 K/mm3 (0.00-0.23); BASOPHILS PERCENT AUTO 1 % (0-2); EOSINOPHILS ABSOLUTE AUTO 0.03 K/mm3 (0.00-0.68); EOSINOPHILS PERCENT AUTO 0 % (0-6); Hemoglobin 12.2 g/dL (13.5-17.5); IMMATURE GRAN ABSOLUTE AUTO 0.05 K/mm3 (0.00-0.10); IMMATURE GRAN PERCENT AUTO 0 % (0-1); LYMPHOCYTES ABSOLUTE AUTO 2.92 K/mm3 (0.84-5.20); LYMPHOCYTES PERCENT AUTO 26 % (21-46); MONOCYTES ABSOLUTE AUTO 0.68 K/mm3 (0.16-1.47); MONOCYTES PERCENT AUTO 6 % (4-13); Mean Corpuscular HGB 27.9 pg (26.0-34.0); Mean Corpuscular Volume 85 fL (80-100); Mean Platelet Volume 8.7 fL (9.1-12.4); NEUTROPHILS ABSOLUTE AUTO 7.63 K/mm3 (1.96-9.15); NEUTROPHILS PERCENT AUTO 67 % (41-73); Platelet Count 565 K/mm3 (150-400); RDW Coefficient Variation 13.2 % (11.7-14.2); RDW Standard Deviation 41.2 fL (35.1-46.3); Red Blood Cell Count 4.38 M/mm3 (4.30-5.90); White Blood Cell Count 11.39 K/mm3 (4.00-11.30)
[2023-03-20 08:21] VITALS: BP 128/75
[2023-03-20 09:03] LABS: U Amphetamine Screen Not Detected; U Barbituate Screen Not Detected; U Benzodiazapine Screen Not Detected; U Buprenorphine Screen Not Detected; U Cannabinoids Screen Not Detected; U Cocaine Screen Not Detected; U Methadone Screen Not Detected; U Methamphetamine Screen Not Detected; U Opiates Screen Not Detected; U Oxycodone Screen Not Detected; U Phencyclidine Screen Not Detected
[2023-03-20 16:09] VITALS: BP 100/76
== END 2023-03-20 23:32 | disposition left against medical advice (07) | DRG 872 ==
LOC: ER 00:55 → MEDS 03:33
PROVIDERS: Student in an Organized Health Care Education/Training Program; ADMIT Internal Medicine
DX: A41.9 Sepsis, unspecified organism (principal); L03.116 Cellulitis of left lower limb; L03.115 Cellulitis of right lower limb; F11.23 Opioid dependence with withdrawal; F17.210 Nicotine dependence, cigarettes, uncomplicated; D64.9 Anemia, unspecified; F15.11 Other stimulant abuse, in remission; Z86.14 Personal history of Methicillin resistant Staphylococcus aureus infection; Z87.01 Personal history of pneumonia (recurrent); Z87.19 Personal history of other diseases of the digestive system; Z53.29 Procedure and treatment not carried out because of patient's decision for other reasons
CPT/HCPCS: 36415; 80053; 83605; 83880; 85025; 96361; 96365; 96375; 99284-25; A9270; J0572; J1650; J1885; J2405; J3370; J7030; J7050